=== PATIENT | female | born 1960 | race Asian ===

== ENCOUNTER 2016-09-26 07:16 | Outpatient (CLI) | payer OTHER | END 2016-09-26 19:09 | disposition home or self-care (01) | LOC: NM 07:16 | DX: R07.89 Other chest pain (principal) | CPT/HCPCS: A9500 ==

== ENCOUNTER 2020-03-09 13:11 | Outpatient (CLI) | payer BC ==
[~2020-03-09] VITALS: Ht 172.7 cm; Wt 93.0 kg
== END 2020-03-09 14:33 | disposition home or self-care (01) ==
LOC: INF 13:11
DX: D50.9 Iron deficiency anemia, unspecified (principal)
CPT/HCPCS: 96365; J1439

== ENCOUNTER 2020-03-17 13:35 | Outpatient (CLI) | payer BC ==
[~2020-03-17] VITALS: Ht 172.7 cm; Wt 91.2 kg
== END 2020-03-17 19:02 | disposition home or self-care (01) ==
LOC: INF 13:35
DX: D50.9 Iron deficiency anemia, unspecified (principal)
CPT/HCPCS: 96365; J1439

== ENCOUNTER 2021-03-01 16:31 | Outpatient (CLI) | payer BC | END 2021-03-01 19:00 | disposition home or self-care (01) | LOC: RAD 16:31 | PROVIDERS: ATTEND Nurse Practitioner Family | DX: M54.6 Pain in thoracic spine (principal) ==